=== PATIENT | male | born 1950 | race Caucasian/White ===

== ENCOUNTER 2017-07-27 19:30 | Emergency (ER) | payer MEDICARE, OTHER ==
[~2017-07-27] VITALS: Ht 180.3 cm; Wt 112.4 kg
[2017-07-27] MEDS ORDERED: ACYC800T PO (19:43)
[2017-07-27] MEDS ORDERED: PRED50 PO (19:43)
[2017-07-27 19:48] LABS: AUTOMATED NEUTROPHIL # 4.8 TH/MM3 (1.8-7.7); BASOPHIL # 0.2 TH/MM3 (0-0.2); BASOPHIL % 3.1 % (0.0-2.0); EOSINOPHIL # 0.3 TH/MM3 (0-0.4); EOSINOPHIL % 3.9 % (0.0-4.0); HEMATOCRIT 48.6 % (39.0-51.0); HEMOGLOBIN 16.3 GM/DL (13.0-17.0); LYMPH % 25.4 % (9.0-44.0); MEAN CELL VOLUME 83.4 FL (80.0-100.0); MEAN CORPUSCULAR HGB CONC 33.6 % (32.0-36.0); MEAN PLATELET VOLUME 8.6 FL (7.0-11.0); MONO % 8.8 % (0.0-8.0); MONOCYTE # 0.7 TH/MM3 (0-0.9); NEUT % 58.8 % (16.0-70.0); PLATELET COUNT 162 TH/MM3 (150-450); RED BLOOD COUNT 5.82 MIL/MM3 (4.50-5.90); RED CELL DISTRIBUTION WIDTH 13.7 % (11.6-17.2)
[2017-07-27 19:51] VITALS: BP 181/111; PULSE 83; RESP 20; O2SAT 97
[2017-07-27] MEDS ORDERED: ASPI-516 CHEW (19:54)
[2017-07-27] MEDS ORDERED: AMLO2.5T PO (19:54)
[2017-07-27 19:55] VITALS: BP 167/89; PULSE 79; RESP 16; O2SAT 97
[2017-07-27 19:56] LABS: CHLORIDE 108 MEQ/L (98-107); SODIUM (NA) 142 MEQ/L (136-145)
--- NOTE | 2017-07-27 19:56 | PD ---
HPI Chief Complaint: Neuro Symptoms/ Deficits Time Seen by Provider: 19:35 Travel History International Travel<30 days: No Contact w/Intl Traveler<30days: No Traveled to known affect area: No History of Present Illness HPI The patient is a 67-year-old male that developed left-sided facial weakness early this morning. He is never had this before. He denies any tick exposure. He denies any focal neurologic change other than the left-sided facial weakness. He complains of left eye watering. His speech is normal, gait is normal and he denies any headache. Denies any hearing loss. [facility] Social History Tobacco Use: No Allergies-Medications (Allergen,Severity, Reaction): Coded Allergies: Penicillins (Verified Allergy, Severe, 07/27/17) Sulfa (Sulfonamide Antibiotics) (Verified Allergy, Severe, 07/27/17) Reported Meds & Prescriptions Reported Meds & Active Scripts Active Acyclovir 800 Mg Tab 800 Mg PO 5 TIMES A DAY 7 Days Prednisone 50 Mg Tab 50 Mg PO BID Reported Amlodipine (Amlodipine Besylate) 2.5 Mg Tab 2.5 Mg PO DAILY Aspirin 81 Mg Chew 81 Mg CHEW DAILY Review of Systems Except as stated in HPI: all other systems reviewed are Neg Physical Exam Narrative GENERAL: The patient is alert, oriented 3 in no apparent distress. The blood pressure is 181/111 but the rest the vital signs are normal. SKIN: Focused skin assessment warm/dry. HEAD: Atraumatic. Normocephalic. EYES: Pupils equal and round. No scleral icterus. No injection or drainage. ENT: No nasal bleeding or discharge. Mucous membranes pink and moist. The tympanic membranes are clear, there is no vesicle on the tympanic membranes. NECK: Trachea midline. No JVD. CARDIOVASCULAR: Regular rate and rhythm. No murmur appreciated. RESPIRATORY: No accessory muscle use. Clear to auscultation. Breath sounds equal bilaterally. GASTROINTESTINAL: Abdomen soft, non-tender, nondistended. Hepatic and splenic margins not palpable. MUSCULOSKELETAL: No obvious deformities. No clubbing. No cyanosis. No edema. NEUROLOGICAL: Awake and alert. No obvious cranial nerve deficits. Motor grossly within normal limits except for left facial nerve palsy. Normal speech and gait. When the patient crinkles his forehead the left side does not crinkle. PSYCHIATRIC: Appropriate mood and affect; insight and judgment normal. Data Data Last Documented VS Vital Signs Date Time Temp Pulse Resp B/P (MAP) Pulse Ox O2 Delivery O2 Flow Rate FiO2 07/27/17 19:55 97 Room Air 07/27/17 19:55 79 16 167/89 (115) Orders Orders Electrocardiogram (07/27/17 19:35) Complete Blood Count With Diff (07/27/17 19:35) Comprehensive Metabolic Panel (07/27/17 19:35) Prednisone (Deltasone) (07/27/17 20:15) Acyclovir (Zovirax) (07/27/17 20:15) Labs Laboratory Tests Test 07/27/17 19:40 White Blood Count 8.0 TH/MM3 Red Blood Count 5.82 MIL/MM3 Hemoglobin 16.3 GM/DL Hematocrit 48.6 % Mean Corpuscular Volume 83.4 FL Mean Corpuscular Hemoglobin 28.0 PG Mean Corpuscular Hemoglobin Concent 33.6 % Red Cell Distribution Width 13.7 % Platelet Count 162 TH/MM3 Mean Platelet Volume 8.6 FL Neutrophils (%) (Auto) 58.8 % Lymphocytes (%) (Auto) 25.4 % Monocytes (%) (Auto) 8.8 % Eosinophils (%) (Auto) 3.9 % Basophils (%) (Auto) 3.1 % Neutrophils # (Auto) 4.8 TH/MM3 Lymphocytes # (Auto) 2.0 TH/MM3 Monocytes # (Auto) 0.7 TH/MM3 Eosinophils # (Auto) 0.3 TH/MM3 Basophils # (Auto) 0.2 TH/MM3 CBC Comment DIFF FINAL Differential Comment Blood Urea Nitrogen 21 MG/DL Creatinine 1.40 MG/DL Random Glucose 108 MG/DL Total Protein 7.7 GM/DL Albumin 3.9 GM/DL Calcium Level 9.1 MG/DL Alkaline Phosphatase 96 U/L Aspartate Amino Transf (AST/SGOT) 18 U/L Alanine Aminotransferase (ALT/SGPT) 34 U/L Total Bilirubin 0.5 MG/DL Sodium Level 142 MEQ/L Potassium Level 3.8 MEQ/L Chloride Level 108 MEQ/L Carbon Dioxide Level 26.1 MEQ/L Anion Gap 8 MEQ/L Estimat Glomerular Filtration Rate 51 ML/MIN MDM Medical Decision Making Medical Screen Exam Complete: Yes Emergency Medical Condition: Yes Medical Record Reviewed: Yes Interpretation(s) The CBC is normal. The complete metabolic profile shows a BUN of 21, cranial 1.4, GFR 51 but is otherwise unremarkable. Differential Diagnosis Morin's palsy, facial tumor-unlikely, schwannoma-unlikely, CVA-unlikely, [place] syndrome Narrative Course The patient has a peripheral seventh nerve palsy. He has no other neurologic deficit. He will be given prednisone and acyclovir. He is told that these medications are possibly and probably affective. He is given probability of recovering fully with Morin's palsy. He should follow-up with ENT if he does not start recovering. The surgical treatment was explained. Diagnosis Primary Impression: Morin's palsy Additional Instructions: As we discussed, the prednisone is one tablet twice daily for 5 days followed by one tablet once daily for 5 days. The acyclovir areas one tablet 5 times daily for 7 days. Follow-up with neurology or ENT if this fails to get better within several weeks. Med/Other Pt SpecificInfo: Prescription(s) given Scripts Acyclovir (Acyclovir) 800 Mg Tab 800 MG PO 5 TIMES A DAY for Mgmt Viral Infection for 7 Days, #35 TAB 0 Refills Prov: Darian Kohli MD 07/27/17 Prednisone (Prednisone) 50 Mg Tab 50 MG PO BID for X 5 days than daily X 5 days, #15 TAB 0 Refills Prov: Darian Kohli MD 07/27/17 Disposition: 01 DISCHARGE HOME Condition: Stable Darian Kohli MD Jul 27, 2017 19:56
[2017-07-27 19:59] LABS: ALBUMIN 3.9 GM/DL (3.4-5.0); BICARBONATE 26.1 MEQ/L (21.0-32.0); CALCIUM 9.1 MG/DL (8.5-10.1); GLUCOSE,RANDOM 108 MG/DL (74-106)
[2017-07-27 20:00] LABS: BLOOD UREA NITROGEN 21 MG/DL (7-18)
[2017-07-27 20:03] LABS: ALT (GPT) 34 U/L (12-78); AST (GOT) 18 U/L (15-37); GLOMERULAR FILTRATION RATE 51 ML/MIN (>89)
[2017-07-27 20:04] LABS: TOTAL BILIRUBIN ADULT 0.5 MG/DL (0.2-1.0); TOTAL PROTEIN 7.7 GM/DL (6.4-8.2)
[2017-07-27 20:06] LABS: ALKALINE PHOSPHATASE 96 U/L (45-117)
[2017-07-27] MEDS ORDERED: ACYCLOVIR 800 MG TAB PO ONE (20:15)
[2017-07-27] MEDS ORDERED: predniSONE 20 MG TAB PO ONE (20:15)
[2017-07-27] MEDS ORDERED: AMLO10CA PO (20:18)
[2017-07-27 21:02] VITALS: BP 169/89
--- NOTE | 2017-07-28 12:51 | EKG ---
Date Performed: 07/27/2017 Time Performed: 19:43:18 PTAGE: 67 years EKG: Sinus rhythm WITH OCCASIONAL SUPRAVENTRICULAR PREMATURE COMPLEXES BORDERLINE LEFT AXIS DEVIATION BORDERLINE ECG NO PREVIOUS TRACING DOCTOR: Timur Burnham Interpretating Date/Time 07/28/2017 12:50:50
== END 2017-07-27 21:03 | disposition home or self-care (01) ==
LOC: PHED 19:30
DX: G51.0 Bell's palsy (principal); Z88.0 Allergy status to penicillin; Z88.2 Allergy status to sulfonamides; Z79.899 Other long term (current) drug therapy; Z79.82 Long term (current) use of aspirin
CPT/HCPCS: 80053; 85025; 93005; 99284; J7512